=== PATIENT | female | born 1995 | race Two or more races ===

== ENCOUNTER 2019-08-30 07:26 | Emergency (ER) | payer OTHER ==
[~2019-08-30] VITALS: Ht 170.2 cm; Wt 54.4 kg
[2019-08-30 07:37] VITALS: BP 110/68
[2019-08-30 08:12] LABS: APPEARANCE,URINE CLEAR; BILIRUBIN, URINE NEGATIVE (NEGATIVE); COLOR,URINE PALE YELLOW; GLUCOSE, URINE (UA) NEGATIVE (NEGATIVE); KETONES,URINE 1+ (NEGATIVE); LEUKOCYTE ESTERASE ,URINE 3+ (NEGATIVE); NITRITE,URINE NEGATIVE (NEGATIVE); PH,URINE 6.5 (4.5-8.0); PROTEIN,URINE NEGATIVE (NEGATIVE); UROBILINOGEN,URINE NORMAL MG/DL (0.0-1.0)
--- NOTE | 2019-08-30 08:28 | Emergency Room Report ---
History of Present Illness General Chief Complaint: Generalized Weakness Source: Patient Present Illness HPI This patient states that she feels like she is recurrently passing out. She states she was at 2 other hospitals previously and they said everything was "normal." She then went on to tell me that they are and infecting her with the needles when they draw her blood. She is refusing any blood draw here in the emergency department this time. She states she does not want to be "infected." She states she was diagnosed with a urinary tract infection 2 days ago by 1 hospital and then yesterday was told she does not have a urinary tract infection. She states she is also been getting "sodium chloride" and methadone through the IV at other facilities. She admits to smoking tobacco and marijuana. She denies other drugs. She states she feels lightheaded and wants to know why she feels like she is going to pass out. She denies recent illness. She has no other complaints. Allergies: Coded Allergies: No Known Allergies (Unverified , 08/30/19) Patient History Past Medical History: see triage record Social History: Reports: smoking, drug use - Marijuana; Denies: alcohol use Now: No Reviewed Nursing Documentation: PMH: Agreed; PSxH: Agreed Nursing Documentation-PMH Past Medical History: No History, Except For History Of Psychiatric Problem: Yes - patient cannot recall the diagnosis Review of Systems All Other Systems: negative except mentioned in HPI Physical Exam Vital Signs Date Time Temp Pulse Resp B/P (MAP) Pulse Ox O2 Delivery O2 Flow Rate FiO2 08/30/19 07:24 97.3 86 16 129/72 (91) 100 Room Air Sp02 EP Interpretation: reviewed, normal General Appearance: no apparent distress, alert, GCS 15, non-toxic Head: normocephalic, atraumatic Eyes: bilateral eye normal inspection, bilateral eye PERRL ENT: hearing grossly normal, normal pharynx, no angioedema, normal voice Neck: full range of motion, supple/symm/no masses Respiratory: chest non-tender, lungs clear, normal breath sounds, speaking full sentences Cardiovascular #1: regular rate, rhythm, no edema Gastrointestinal: normal bowel sounds, non tender, soft, non-distended, no guarding, no rebound Rectal: deferred Genitourinary: no CVA tenderness Musculoskeletal: back normal, normal range of motion, gait/station normal, non- tender Neurologic: alert, motor strength/tone normal, oriented x3, sensory intact, responsive, speech normal Psychiatric: judgement/insight normal, memory normal, mood/affect normal, no suicidal/homicidal ideation Skin: no rash, normal color Lymphatic: no adenopathy, axilla node tender (R) Medical Decision Making Diagnostic Impression: Primary Impression: UTI (urinary tract infection) ER Course This patient has a baseline mild bradycardia. The patient's resting heart rate is in the low 50s. However, the patient's heart rate does respond and increases to the 70s and 80s with even conversation with myself. Possibly in combination with substance abuse, the patient may be getting lightheaded from this combination. It seems that the patient has been extensively worked up at other medical facilities over the past 2 days without abnormal findings. I had plan on obtaining basic blood work to include a chemistry panel, complete blood count in combination with a chest x-ray, EKG and urinalysis. However, the patient adamantly declined any type of lab blood draw. She did allow an EKG which only showed sinus bradycardia. She declined chest x-ray. Urinalysis showed possible early urinary tract infection. I will give the patient a course of antibiotics. The patient's urine drug screen was also positive for amphetamines. I suspect the patient's symptoms are a factorial. At this time, I did not identify an emergency medical condition. The patient is given close return precautions and follow-up instructions. Laboratory Tests Test 08/30/19 08:00 Urine Color Pale yellow Urine Appearance Clear Urine pH 6.5 (4.5-8.0) Urine Specific [place] 1.020 (1.005-1.035) Urine Protein Negative (NEGATIVE) Urine Glucose (UA) Negative (NEGATIVE) Urine Ketones 1+ (NEGATIVE) H Urine Blood 3+ (NEGATIVE) H Urine Nitrite Negative (NEGATIVE) Urine Bilirubin Negative (NEGATIVE) Urine Urobilinogen Normal MG/DL (0.0-1.0) Urine Leukocyte Esterase 3+ (NEGATIVE) H Urine RBC 5-10 /HPF (0 - 2) H Urine WBC 5-10 /HPF (0 - 2) H Urine Squamous Epithelial Cells Few /LPF (NONE/OCC) Urine Bacteria Few /HPF (NONE) Urine HCG, Qualitative Negative (NEGATIVE) Urine Opiates Screen Negative (NEGATIVE) Urine Barbiturates Screen Negative (NEGATIVE) Phencyclidine (PCP) Screen Negative (NEGATIVE) Urine Amphetamines Screen Positive (NEGATIVE) H Urine Benzodiazepines Screen Negative (NEGATIVE) Urine Cocaine Screen Negative (NEGATIVE) Urine Marijuana (THC) Screen Negative (NEGATIVE) EKG Diagnostic Results Rate: bradycardiac Rhythm: other - S.bradycardia ST Segments: no acute changes Rhythm Strip Diag. Results EP Interpretation: yes Rate: 50's-70's Rhythm: no PVC's, no ectopy Last Vital Signs Date Time Temp Pulse Resp B/P (MAP) Pulse Ox O2 Delivery O2 Flow Rate FiO2 08/30/19 07:37 98.1 82 16 110/68 100 Room Air Disposition: HOME, SELF-CARE Condition: Improved Scripts Unable to Obtain Active Prescriptions or Reported Meds Referrals: [facility]ERR[facility] (PCP) Yocasta Smith DO Aug 30, 2019 08:28
[2019-08-30 09:30] VITALS: BP 123/71
[2019-08-30] MEDS ORDERED: NITROFURANTOIN100 M2 ORAL (10:22)
[2019-08-30 11:20] VITALS: BP 120/81
--- NOTE | 2019-08-30 12:18 | Diagnostic Imaging Report ---
Indication: Dyspnea Comparison: None A single view chest radiograph was obtained. Findings: Cardiomediastinal appearance is within normal limits for age. The lungs are clear. Pulmonary vascularity is appropriate. The diaphragmatic contour is smooth and costophrenic angles are sharp. No pleural effusions are identified. The bones are unremarkable. Impression: No acute findings
== END 2019-08-30 11:20 | disposition home or self-care (01) ==
LOC: EDBD 07:26 → EMR 08:00
DX: N39.0 Urinary tract infection, site not specified (principal); F15.10 Other stimulant abuse, uncomplicated; F17.200 Nicotine dependence, unspecified, uncomplicated
CPT/HCPCS: 71045; 80307; 81003; 81025; 93005; Z7502; 99283